=== PATIENT | female | born 1955 | race Caucasian/White ===

== ENCOUNTER → 2017-07-08 07:35 | Outpatient (CLI) | payer OTHER, SELFPAY ==
--- NOTE | 2017-07-08 07:41 | HPBI_ITS ---
MAMMOGRAPHY - BILATERAL SCREENING REASON FOR EXAM: Female, 62 years old. Routine annual screening examination. PERTINENT HISTORY: Sister with breast cancer. Remote right excisional breast biopsy. TECHNIQUE: Digital bilateral breast hiro (3D mammographic acquisition) in the CC and MLO projections. 2-D mediolateral oblique (MLO) and craniocaudad (CC) views of both breasts were obtained. CAD: Full Field Digital Mammography with Computer Added Detection was performed. COMPARISON: Comparison is made with prior study dated June 18, 2016 and May 20, 2014. FINDINGS: Breast Composition: The breasts are heterogeneously dense, which may obscure small masses. There are no dominant masses or suspicious calcifications. Stable bilateral benign-appearing axillary lymph nodes. No other significant abnormalities are identified. There has been no significant change since the prior study. HPBI/SCREENING MAMM (CAD), BILAT IMPRESSION: Stable bilateral screening mammogram. Yearly follow-up mammogram recommended. (A) ASSESSMENT CATEGORY: BIRADS Category 2: Benign. A letter regarding these results will be sent to the patient by the facility within 30 days. Approximately 10% of breast cancers are not detected by mammography. A normal mammogram should not delay biopsy of a clinically suspicious abnormality. [id number] Electronically Signed: Rodolfo Lam MD at 9:15 EST Tel [phone], Service support ,
== END ==
PROVIDERS: Family Provider Family Medicine; PCP Family Medicine; Visit Provider Obstetrics & Gynecology
DX: Z12.31 Encounter for screening mammogram for malignant neoplasm of breast (principal); Z80.3 Family history of malignant neoplasm of breast
CPT/HCPCS: 77063; 77067

== ENCOUNTER 2021-11-05 12:46 | Emergency (ER) | payer MEDICARE, OTHER, SELFPAY ==
[2021-11-05 12:47] VITALS: BP 157/89; PULSE 70; RESP 15; TEMP 36.9; O2SAT 98; BMI 23.9
--- NOTE | 2021-11-05 13:06 | EDS_ITS ---
HPI History of Present Illness Chief Complaint: Upper Extremity Injury Detail of Chief Complaint: Staple in left hand Informant: patient Onset/Context/Timing Onset: Today Narrative Narrative: Patient presents with a staple in the palm of her left hand. She was using a staple gun when the device misfired and she is a staple in the palm of her hand along the fourth metacarpal. She initially went to urgent care and was sent to the emergency room. She is unsure of her last tetanus update. She is right- hand dominant. Tetanus Immunization: Unknown PFSH PFS Home Medications cephalexin 500 mg capsule 500 mg PO Q6 #40 caps 11/05/21 [Rx Last Taken Unknown] Allergy/AdvReac Type Severity Reaction Status Date / Time No Known Allergies Allergy Verified 11/05/21 12:47 Social History Smoking Status: Former smoker ROS ROS ED Constitutional Constitutional ED: Denies chills or fever(s) Eyes Eyes: Denies change in vision or discharge from eye(s) ENT ENT ED: Denies discharge from eye(s), rhinorrhea or sore throat Cardiovascular Cardiovascular: Denies chest pain or palpitations Respiratory/Chest Respiratory/Chest: Denies cough or dyspnea Gastrointestinal Gastrointestinal: Denies abdominal pain, diarrhea, nausea or vomiting Genitourinary Genitourinary ED: Denies difficulty urinating or dysuria Musculoskeletal Musculoskeletal: Reports extremity pain; Denies back pain Integumentary Denies Abrasions or rash Neurologic Neurologic: Denies headache(s) or paresthesias Psychiatric Psychiatric: Reports anxiety Allergic/Immunologic Allergic/Immunologic ED: Denies lip swelling or urticaria EXAM Physical Exam Const Vital Signs: 11/05/21 12:47 Temperature 98.4 F Temperature Source Temporal Pulse Rate 70 Respiratory Rate 15 Blood Pressure 157/89 H Blood Pressure Mean 111 Pulse Ox 98 Oxygen Delivery Method Room Air Positive well nourished and well developed General Appearance ED: well developed HEENT Reports normocephalic and head/scalp atraumatic Eyes PERRL and EOMs intact bilaterally Neck supple Chest Wall inspection of chest normal and palpation of chest normal Resp normal respiratory effort and clear to auscultation bilaterally Cardio regular rate and regular rhythm GI Palpation: soft Extremity Extremity Narrative: Metal staple in the palm of the left hand over the fourth metacarpal. Good cap refill and sensation distally. Neuro oriented x3 and no sensory deficits noted Sensorium / Orientation: alert Psych Mood & Affect: anxious MDM MDM MDM Narrative Medical decision making narrative: 7 cc 1% lidocaine are not fused around the staple site on the palm of the hand. Right hand x-ray obtained. Treatment and Re-Evaluation Narrative: Left hand x-ray per my interpretation reveals stable in the soft tissue only. No bony involvement. After hand was anesthetized with lidocaine staple was easily removed. Wound is thoroughly cleansed. She is able to wiggle fingers. Dressing is applied and patient will be treated with Keflex. Discharge Plan Triage Chief Complaint: Upper Extremity Injury ED Provider: Xiomara Johnson Dx/Rx/DC Orders Clinical Impression: Puncture wound, Foreign body (FB) in soft tissue Instructions: First Aid: Punctures, ED Puncture Wound (General) Prescriptions: New cephalexin 500 mg capsule 500 mg PO Q6 Qty: 40 0RF Primary Care Provider: Ollie Hawley Referrals: Ollie Hawley MD [Primary Care Provider] - 1 Week Disposition Disposition: Home, Self Care
[2021-11-05] MEDS: Diphth,Pertuss(Acell),Tet Vac 0.5 ML Vial IM (13:08)
--- NOTE | 2021-11-05 13:12 | RAD_ITS ---
STUDY: X-RAY - LEFT HAND REASON FOR EXAM: Female, 66 years old. Pain and swelling after trauma TECHNIQUE: 3 view(s) of the hand. COMPARISON: None. FINDINGS: Normal radiocarpal articulation. Normal distal radioulnar joint. Normal visualized carpal bones. Normal carpal articulations Normal carpometacarpal articulation of the thumb. Normal second through fifth carpometacarpal joints. Normal metacarpi. Normal metacarpophalangeal joint of the thumb. Normal interphalangeal joint of the thumb. Normal proximal and distal phalanges of the thumb. Normal metacarpophalangeal joints of the second through fifth fingers. PIP and DIP joint arthrosis. Normal phalanges of the second through fifth fingers. Large staple in the volar aspect of the hand along the proximal third metacarpal RAD/Hand Min 3 Views IMPRESSION: Metallic staple noted in the volar soft tissues volar to the proximal third metacarpal No demonstrated fracture Distal joint arthrosis Electronically Signed: Arsh Brown MD at 13:38 EDT ,
[2021-11-05] MEDS: Lidocaine 1% (20 ml mdv) 20 ML Vial INFILT (13:49)
[2021-11-05] MEDS: Cephalexin 250 MG Capsule 500 MG PO (13:49)
== END 2021-11-05 13:56 | disposition home or self-care (01) ==
PROVIDERS: Emergency Provider Emergency Medicine; PCP Family Medicine; Visit Provider Emergency Medicine
DX: S61.441A Puncture wound with foreign body of right hand, initial encounter (principal); W26.8XXA Contact with other sharp object(s), not elsewhere classified, initial encounter; Z18.10 Retained metal fragments, unspecified; Z23 Encounter for immunization; Z87.891 Personal history of nicotine dependence
CPT/HCPCS: 73130; 90471; 90715; 99283

== ENCOUNTER 2024-06-16 12:31 | Emergency (ER) | payer MEDICARE, OTHER, SELFPAY ==
[2024-06-16 12:31] VITALS: BP 173/88; PULSE 67; RESP 16; TEMP 36.6; O2SAT 98; BMI 23.9
[2024-06-16 14:31] VITALS: PULSE 56; RESP 20; O2SAT 96
--- NOTE | 2024-06-16 14:31 | CT_ITS ---
EXAM: BRAIN/HEAD WITHOUT CONTRAST CLINICAL HISTORY: Started new blood pressure medicine and feeling shaky/weird. COMPARISON: None. TECHNIQUE: Noncontrast images of the head with multiplanar reconstructions. Dose reduction techniques were used including intermediate exposure control (AEC),iterative reconstruction technique, and/or mA and/or KV dose adjustments based on patient's size. FINDINGS: No acute intracranial hemorrhage, mass, mass effect, midline shift or pathologic extra-axial fluid collection. No hydrocephalus. Preservation of the bailey- white parenchymal differentiation. The orbits are symmetrically unremarkable. Visualized paranasal sinuses and mastoid air cells are clear. The calvarium is grossly intact. Nasal septum is deviated to the left. CT/Brain/Head without Contrast IMPRESSION: No CT evidence of acute intracranial pathology. Reading Location: [id number]
--- NOTE | 2024-06-16 14:32 | EKG12_ITS ---
Test Reason : CP Blood Pressure : */* mmHG Vent. Rate : 61 BPM Atrial Rate : 61 BPM P-R Int : 184 ms QRS Dur : 132 ms QT Int : 456 ms P-R-T Axes : 86 89 62 degrees QTcB Int : 459 ms Normal sinus rhythm Right bundle branch block Abnormal ECG Confirmed by Isaias Conklin ([id number]), editor trade journal JOEY WHIPPLE ([id number]) on 06/17/2024 11:22:34 AM Referred By: Confirmed By: Isaias Conklin
--- NOTE | 2024-06-16 14:33 | EDS_ITS ---
HPI History of Present Illness Chief Complaint: General Illness Narrative Narrative: 69-year-old female presents with what she thinks is medication side effect. She has past medical history of hypertension for which she has been taking hydrochlorothiazide for years. Additionally, she states she has gastric motility problems and has to take a laxative to have a bowel movement. She takes them once or twice a week. She has been supplementing with potassium recommended by her primary care provider because she has been craving salt. She states that she was started on losartan 25 mg daily for blood pressure by her primary care provider's ANNI. She took it last night, and felt fine. She took it again this morning because she wanted to start her own establish a routine and taking her other medications as well. While she took her losartan at 8 AM, around noon she had called her primary care provider's office because she has started to feel shaky, she felt heart palpitations and as if she had taken speed. She feels improved currently. However, she states she still has a headache. She denies any other exacerbating or alleviating factors to her symptoms. [facility] Medical History High blood cholesterol Hypertension Home Medications ?Medication ?Instructions ?Recorded ?Last Taken ?Type atorvastatin 10 mg tablet 10 mg PO DAILY 06/16/24 Unkn own History hydrochlorothiazide 25 mg tablet 25 mg PO DAILY Unknown History losartan 25 mg tablet 25 mg PO DAILY 06/16/24 Unkn own History potassium chloride 10 mEq 10 meq PO DAILY 06/16/24 Unk nown History tablet,extended release Allergy/AdvReac Type Severity Reaction Status Date / Time No Known Allergies Allergy Verified 06/16/24 12:34 Surgical History History of tonsillectomy and adenoidectomy Social History Smoking Status: Current every day smoker tobacco type: e-cigarettes ROS ROS ED ROS Narrative Constitutional: No fever, no chills. Feeling shaky. HEENT: No sore throat. No neck pain. No loss of vision. No rhinorrhea. Cardiovascular: No chest pain. Positive palpitations and high heart rate. No pedal edema. Respiratory: No cough, no shortness of breath. Abdominal: No abdominal pain. No nausea. No vomiting. Genitourinary: No dysuria. No hematuria. Musculoskeletal: No myalgias. No arthralgias. Neurologic: Positive headaches. No dizziness. No lightheadedness. Skin: No rash. No change in color. Psychiatric: No depression. No anxiety. EXAM Physical Exam Narrative Exam Narrative: Afebrile. Vital signs noted. Nontoxic-appearing. Cardiovascular examination reveals a regular rate and rhythm with intermittent bradycardia. Lungs are clear to auscultation bilaterally. Abdomen soft nontender with normal active bowel sounds. No guarding or rebound. Neurological examination is nonfocal and nonlateralizing. Moves all extremities. Const Vital Signs: 06/16/24 12:31 06/16/24 14:15 06/16/24 14:31 Temperature 97.8 F Temperature Source Oral Pulse Rate 67 56 L Respiratory Rate 16 20 H Respiratory Effort Normal Blood Pressure 173/88 H Blood Pressure Mean 116 Pulse Ox 98 96 Oxygen Delivery Method Room Air Room Air MDM MDM MDM Narrative Medical decision making narrative: Patient currently has elevated blood pressure, but a normal heart rate. EKG was obtained and interpreted by myself independently as normal sinus rhythm at 61 bpm without ectopy or acute ST changes. No STEMI. Differential diagnosis for headache includes but not limited to hypertensive urgency/emergency versus intracranial hemorrhage. Comprehensive workup was pursued. I will also look for signs of dehydration or potassium depletion given that she is on hydrochlorothiazide and takes a laxative as well. I do not feel she requires IV fluids currently. As she was complaining of shortness of breath, chest x-ray will be obtained to rule out pneumonia and/or pneumothorax. I have low suspicion for pulmonary embolism as her pulse ox is 98% on room air, she is not tachycardic. I reviewed her laboratory work and she has normal white count of 5.9, hemoglobin 13.5, hematocrit 40.5, platelet count 255. Her electrolyte panel is grossly unremarkable and she has a normal potassium of 3.5, LFTs are grossly unremarkable. BUN normal at 12 with creatinine 0.85. No evidence of dehydration. I reviewed the radiology report of the CT of the brain and there is no intracranial hemorrhage. My independent interpretation of her chest x-ray shows no pneumonia or pneumothorax, no widened mediastinum. At this point in time, upon repeat examination, she is resting on the cot comfortably. I feel she can be discharged to follow-up. She was told to call her primary care provider to see if they want her to change her medication as they had added an additional antihypertensive. Return instructions to the emergency department were reviewed. Patient motivated for discharge. Disposition is discharged home in stable condition. History & Record Review Discussion w/independent historian: Patient Lab Data Attestation: I reviewed the patient's lab results. Labs: Laboratory Results - last 24 hr 06/16/24 15:15 WBC 5.9 RBC 4.26 Hgb 13.5 Hct 40.5 MCV 95.1 MCH 31.7 MCHC 33.3 RDW Std Deviation 43.9 RDW Coeff of Dionte 12.8 Plt Count 255 MPV 11.7 Immature Gran % (Auto) 0.200 Neut % (Auto) 62.9 Lymph % (Auto) 28.4 [place] % (Auto) 6.6 Eos % (Auto) 1.4 Baso % (Auto) 0.5 Absolute Neuts (auto) 3.7 Absolute Lymphs (auto) 1.68 Nucleated RBC % 0 Sodium 140 Potassium 3.5 Chloride 107 Carbon Dioxide 28.0 Anion Gap 5 BUN 12 Creatinine 0.85 Estim Creat Clear Calc 61.24 Est GFR (MDRD) Af Amer 85 Est GFR (MDRD) Non-Af 70 BUN/Creatinine Ratio 14.2 Glucose 92 Calcium 9.5 Total Bilirubin 0.50 AST 20 ALT 23 Alkaline Phosphatase 85 Total Protein 7.0 Albumin 3.8 Globulin 3.2 Albumin/Globulin Ratio 1.2 Radiography Chest X-Ray - ED: 1 View, Read by ED Physician and Read by Radiologist Diagnostic Testing: Clinical Impression(s) from Imaging Studies Brain CT 06/16/24 14:31 IMPRESSION: No CT evidence of acute intracranial pathology. Reading Location: [id number] Chest X-Ray 06/16/24 14:45 IMPRESSION: No acute cardiopulmonary process. Reading Location[facility] Discharge Plan Triage Chief Complaint: General Illness ED Provider: Momo Staton Dx/Rx/DC Orders Clinical Impression: Shakiness, Palpitations, Medication side effects Instructions: ED Screening Exam Medical Nonurgent, ED Palpitations Prescriptions: No Action atorvastatin 10 mg tablet 10 mg PO DAILY potassium chloride 10 mEq tablet extended release 10 meq PO DAILY losartan 25 mg tablet 25 mg PO DAILY hydrochlorothiazide 25 mg tablet 25 mg PO DAILY Primary Care Provider: Ollie Hawley Referrals: Ollie Hawley MD [Primary Care Provider] - 1-2 Days if not improving Activity Restrictions/Additional Instructions: Continue your antihypertensive medication. Follow-up with your primary care provider. Return to the emergency department with new or worsening symptoms. Your laboratory work and EKG and chest x-ray along with CT were grossly unremarkable today. Print Language: Icelandic Disposition Disposition: Home, Self Care
--- NOTE | 2024-06-16 14:45 | RAD_ITS ---
EXAM: XR Chest, 1 View CLINICAL INDICATION: TECHNIQUE: Frontal view of the chest. COMPARISON: No relevant prior studies available. FINDINGS: LUNGS AND PLEURAL SPACES: Unremarkable. No consolidation. No pneumothorax. HEART: Unremarkable. No cardiomegaly. MEDIASTINUM: Unremarkable. Normal mediastinal contour. BONES/JOINTS: Unremarkable. No acute fracture. RAD/Chest 1 View (Portable) IMPRESSION: No acute cardiopulmonary process. Reading Location[facility]
[2024-06-16 15:28] LABS: Absolute Lymphocyte Count 1.68 X10^3/uL (0.83-4.51); Absolute Neutrophil Count 3.7 X10^3/uL (2.0-7.7); Basophil# 0.03 X10^3/uL; Basophil% 0.5 % (0-1); Eosinophil# 0.08 X10^3/uL; Eosinophils% 1.4 % (0-5); Hematocrit 40.5 % (37-47); Hemoglobin 13.5 g/dL (12.0-15.0); Lymphocyte # 1.68 X10^3/ul (0.83-4.51); Lymphocyte % 28.4 % (19-41); Mean Corp Hgb Conc 33.3 g/dL (32-36); Mean Corpuscular Hgb 31.7 pg (27.0-32.0); Mean Corpuscular Volume 95.1 fL (81-99); Mean Platelet Vol. 11.7 fl (6.2-12.0); Monocyte# 0.39 X10^3/uL; Monocyte% 6.6 % (0-10); NRBC Flagged by Analyzer 0 % (0-5); Neutrophil # 3.72 X10^3/uL (2.7-7.7); Neutrophil % 62.9 % (47-70); Platelet Count 255 K/mm3 (150-450); RBC Distribution Width CV 12.8 % (11.6-14.6); RBC Distribution Width SD 43.9 fl (35.1-43.9); Red Blood Count 4.26 M/mm3 (4.2-5.4); White Blood Count 5.9 K/mm3 (4.4-11.0)
[2024-06-16 15:56] LABS: ALB/GLOB Ratio 1.2 RATIO (0.9-2.4); AST(SGOT) 20 U/L (15-37); Alanine Aminotransfer ALT/SGPT 23 U/L (13-56); Albumin, Serum 3.8 g/dL (3.2-5.0); Alkaline Phosphatase 85 U/L (45-117); Anion Gap 5 (5-15); BUN 12 mg/dL (7-18); BUN/Creat Ratio 14.2 RATIO (10-20); Calcium,Total 9.5 mg/dL (8.5-10.1); Chloride 107 mmol/L (98-107); Creatinine, Serum 0.85 mg/dL (0.55-1.02); EST Glomerular Filtration Rate 70 mL/min (>60); Est Glom Filt Rate - Afr Amer 85 mL/min (>60); Estimated Creatinine Clearance 61.24 ml/min; Globulin 3.2 g/dL (2.2-4.2); Glucose 92 mg/dL (74-106); Potassium 3.5 mmol/L (3.5-5.1); Sodium Level 140 mmol/L (136-145)
[2024-06-16 16:00] VITALS: BP 155/81; PULSE 58; RESP 16; TEMP 36.6; O2SAT 99
[2024-06-16 16:02] LABS: Bacteria 0 SEEN /hpf (None Seen); Mucous, Urine 0 SEEN /hpf (<or=2+); White Blood Cells 0 SEEN /hpf (0-5)
[2024-06-16 16:23] LABS: Color, Urine Yellow (Yellow); Glucose, Dipstick Normal (Normal); Ketone-Dipstick Negative (Negative); Leukocyte Esterase-Dipstick 25 /ul (Negative); Nitrite-Dipstick Negative (Negative); Occult Blood-Urine Negative /ul (Negative); Protein-Dipstick Negative (Negative); Urine Bilirubin Dipstick Negative (Negative); Urine Clarity Clear (Clear); Urine Urobilinogen Normal (Normal); Urine pH 6.5 (5.0 - 8.0)
[2024-06-16 16:46] LABS: Red Blood Cells-Urine 0 SEEN /hpf (0-5); Squamous Epithelial Cells - UA 0-5 SEEN /hpf (5-10)
== END 2024-06-16 16:18 | disposition home or self-care (01) ==
PROVIDERS: Emergency Provider Emergency Medicine; PCP Family Medicine; Visit Provider Emergency Medicine
DX: R00.2 Palpitations (principal); R25.8 Other abnormal involuntary movements; T50.2X5A Adverse effect of carbonic-anhydrase inhibitors, benzothiadiazides and other diuretics, initial encounter; R06.02 Shortness of breath; E78.00 Pure hypercholesterolemia, unspecified; I10 Essential (primary) hypertension; F17.290 Nicotine dependence, other tobacco product, uncomplicated; Z79.899 Other long term (current) drug therapy
CPT/HCPCS: 70450; 71045; 80053; 81001; 85025; 93005; 99284; A4216

== ENCOUNTER 2024-07-16 18:55 | Emergency (ER) | payer MEDICARE, OTHER, SELFPAY ==
[2024-07-16 18:56] VITALS: BP 109/82; PULSE 69; RESP 15; TEMP 36.4; O2SAT 100; BMI 23.1
--- NOTE | 2024-07-16 18:58 | EKG12_ITS ---
Test Reason : CP Blood Pressure : */* mmHG Vent. Rate : 66 BPM Atrial Rate : 66 BPM P-R Int : 196 ms QRS Dur : 152 ms QT Int : 466 ms P-R-T Axes : 74 68 17 degrees QTcB Int : 488 ms Normal sinus rhythm Right bundle branch block Abnormal ECG Confirmed by NATALI MCKNIGHT, LINDA ([id number]), telegraph editor JOEY WHIPPLE ([id number]) on 07/20/2024 10:47:59 AM Referred By: Wilfrido Olivera Confirmed By: LINDA HURST MD
--- NOTE | 2024-07-16 19:31 | ED.VIS.CHEST ---
HPI History of Present Illness Chief Complaint: Chest Pain [facility] Medical History High blood cholesterol Hypertension Home Medications ?Medication ?Instructions ?Recorded ?Last Taken ?Type atorvastatin 10 mg tablet 10 mg PO DAILY 06/16/24 Unknown History hydrochlorothiazide 25 mg tablet 25 mg PO DAILY 06/16/24 Unknown History losartan 25 mg tablet 25 mg PO DAILY 06/16/24 Unknown History potassium chloride 10 mEq 10 meq PO DAILY 06/16/24 Unknown History tablet,extended release Allergy/AdvReac Type Severity Reaction Status Date / Time No Known Allergies Allergy Verified 07/16/24 18:58 Family History no significant family his Surgical History History of tonsillectomy and adenoidectomy Social History Smoking Status: Current every day smoker tobacco type: e-cigarettes EXAM Physical Exam Const Vital Signs: 07/16/24 18:56 07/16/24 19:19 07/16/24 19:42 Temperature 97.6 F L Temperature Source Temporal Pulse Rate 69 Respiratory Rate 15 Respiratory Effort Short of Breath Blood Pressure 109/82 H Blood Pressure Mean 91 Pulse Ox 100 Oxygen Delivery Method Room Air Room Air 07/16/24 19:55 07/16/24 21:00 07/16/24 22:00 Temperature Temperature Source Pulse Rate 61 58 L 62 Respiratory Rate 12 18 19 H Respiratory Effort Blood Pressure 114/67 126/75 H Blood Pressure Mean 82 92 Pulse Ox 97 98 98 Oxygen Delivery Method Room Air Room Air Room Air 07/16/24 22:07 Temperature 97.5 F L Temperature Source Pulse Rate 62 Respiratory Rate 19 H Respiratory Effort Blood Pressure 126/75 H Blood Pressure Mean 92 Pulse Ox 98 Oxygen Delivery Method MDM MDM MDM Narrative Medical decision making narrative: HISTORY OF PRESENT ILLNESS: 69-year-old female history of hypertension, hyperlipidemia presents with chest pain. Notes she has had this for couple days. She notes shortness of breath as well. States she was seen for similar about 1 month ago. She notes recently she has been having lots of side effects from blood pressure medication including chest pain and feeling off. She notes that she has intermittent chest pain and shortness of breath. No chest pain or short of breath as she sits here. Notes earlier today she had symptoms. They are not exertional. Not pleuritic. She denies leg swelling. Denies any bleeding diathesis. Denies any recent cough fever chills. The patient denies recent surgery in the last 4 weeks or immobilization in the last 3 days, denies previous diagnosis of DVT or PE, hemoptysis, unilateral leg swelling or malignancy with treatment the last 6 months or palliative. No estrogen use noted. Patient denies sudden onset of pain, no tearing sensation, no migratory symptoms, no new numbness, weakness or loss of sensation. Patient denies family history or personal history of Connective tissue disorders (Marfan's Syndrome, Elin Danlos etc) REVIEW OF SYSTEMS: Pertinent positives: Chest pain, shortness of breath Pertinent negatives: As per HPI PHYSICAL EXAM: Nursing triage notes reviewed, Vital signs reviewed Constitutional: please see mdm HENT: MMM Eyes: Pupils equal round and reactive to light, Extraocular muscles intact Neck: No stridor, no JVD, full neck ROM Lungs: Clear to auscultation, No wheezing or rales. No increased work of breathing, no conversational dyspnea, no accessory muscle use, no nasal flaring. No respiratory distress noted Heart: Regular rate and rhythm, No murmurs, No rubs and No gallops, 2+ distal pulses (radial, femoral, posterior tibial) in all extremities Abdomen: Soft, there is no tenderness, rigidity, rebound or guarding, no obvious peritoneal signs, no palpable pulsatile abdominal masses, no auscultated abdominal bruit : No CVAT Extremities: No edema Neuro: No new focal neurological deficits, cranial nerves II through XII intact, 5/5 strength in all present extremities. Intact sensation to light touch in all present extremities, 2+ reflexes bilateral patella tendons. Skin: No rash or lesions noted MEDICAL DECISION MAKING: Chief Complaint: Chest pain, shortness of breath External records reviewed: Reviewed prior cardiovascular testing Factors affecting care: n as per HPI. Social determinants of health: none History obtained from others: none Consults: none [facility] Narrative: The patient was initially hemodynamically stable, afebrile and nontoxic-appearing. Exam without focal cardiopulmonary abnormalities. I considered the following differential diagnosis: ACS, arrhythmia, anemia, electrolyte disturbance, pneumonia, pneumothorax, pericarditis, PE, aortic dissection. I obtained a broad lab and imaging workup to further elucidate the etiology of the patient's complaints. ALL IMAGES (IF OBTAINED) HAVE BEEN PERSONALLY REVIEWED AND INTERPRETED BY MYSELF. EKG is obtained per protocol. EKG shows a sinus rhythm, 66 bpm, prolonged QT interval at 488, right bundle branch block normal axis, no obvious STEMI. Similar morphology compared to EKG from 06/16/2024 high-sensitivity troponin is negative, no evidence of myocardial ischemia x 2 (rules out per protocol) CBC without leukocytosis, severe anemia, no thrombocytopenia. BMP with mild hypokalemia, no REGAN I have personally reviewed the patient's chest x-ray. Chest x-ray is unremarkable for pulmonary edema, pneumothorax, pneumonia or focal cardiopulmonary abnormality. The synthesis of the patient's history, physical exam, labs images suggest no acute life-limiting etiology. Hypokalemia noted was replaced with oral potassium. Discussed close outpatient follow-up for further blood pressure medication titration The patient and/or family, caregivers express understanding. The patient and/or family, caregivers agrees with the plan. Shared decision making: I will have a discussion with the patient and or visitors regarding risk/benefits of further testing or admission. They will be made aware of of the risk/benefits inherent in this decision they will be given the opportunity to voice understanding. Total critical care time today provided was at least 0 minutes. This excludes separately billable procedures. Critical care time (if documented) is secondary to the patient having high probability of clinically significant/life threatening deterioration in the patient's condition which required my urgent intervention. Impression: 1. Chest pain 2. Hypokalemia Dispo: Discharge home This note was generated with [employer] dictation software. It may contain incorrect words, spelling, and punctuation that were not noted in review of the chart prior to signing. Lab Data Labs: Laboratory Results - last 24 hr 07/16/24 07/16/24 19:30 21:30 WBC 4.8 RBC 4.39 Hgb 14.1 Hct 40.5 MCV 92.3 MCH 32.1 H MCHC 34.8 RDW Std Deviation 42.5 RDW Coeff of Dionte 12.6 Plt Count 256 MPV 11.4 Immature Gran % (Auto) 0.200 Neut % (Auto) 53.7 Lymph % (Auto) 35.8 [place] % (Auto) 7.2 Eos % (Auto) 2.3 Baso % (Auto) 0.8 Absolute Neuts (auto) 2.6 Absolute Lymphs (auto) 1.73 Nucleated RBC % 0 Sodium 140 Potassium 2.9 L Chloride 103 Carbon Dioxide 20.7 L Anion Gap 16 H BUN 10 Creatinine 0.75 Estim Creat Clear Calc 65.06 Est GFR (MDRD) Non-Af 85 BUN/Creatinine Ratio 13.0 Glucose 115 H Calcium 9.4 Troponin T High Sens 8 Troponin T Hi Sens 2 Hr 7 Radiography Diagnostic Testing: Clinical Impression(s) from Imaging Studies Chest X-Ray 07/16/24 19:55 IMPRESSION: New bibasilar infiltrates, [id number]. Follow-up until resolution is recommended. Reading Location: [facility] Discharge Plan Triage Chief Complaint: Chest Pain ED Provider: Wilfrido Olivera Dx/Rx/DC Orders Prescriptions: No Action atorvastatin 10 mg tablet 10 mg PO DAILY potassium chloride 10 mEq tablet extended release 10 meq PO DAILY losartan 25 mg tablet 25 mg PO DAILY hydrochlorothiazide 25 mg tablet 25 mg PO DAILY Primary Care Provider: Ollie Hawley Referrals: Ollie Hawley MD [Primary Care Provider] - Print Language: Romanian
[2024-07-16 19:43] LABS: Absolute Lymphocyte Count 1.73 X10^3/uL (0.83-4.51); Absolute Neutrophil Count 2.6 X10^3/uL (2.0-7.7); Basophil# 0.04 X10^3/uL; Basophil% 0.8 % (0-1); Eosinophil# 0.11 X10^3/uL; Eosinophils% 2.3 % (0-5); Hematocrit 40.5 % (37-47); Hemoglobin 14.1 g/dL (12.0-15.0); Lymphocyte # 1.73 X10^3/ul (0.83-4.51); Lymphocyte % 35.8 % (19-41); Mean Corp Hgb Conc 34.8 g/dL (32-36); Mean Corpuscular Hgb 32.1 pg (27.0-32.0); Mean Corpuscular Volume 92.3 fL (81-99); Mean Platelet Vol. 11.4 fl (6.2-12.0); Monocyte# 0.35 X10^3/uL; Monocyte% 7.2 % (0-10); NRBC Flagged by Analyzer 0 % (0-5); Neutrophil # 2.59 X10^3/uL (2.7-7.7); Neutrophil % 53.7 % (47-70); Platelet Count 256 K/mm3 (150-450); RBC Distribution Width CV 12.6 % (11.6-14.6); RBC Distribution Width SD 42.5 fl (35.1-43.9); Red Blood Count 4.39 M/mm3 (4.2-5.4); White Blood Count 4.8 K/mm3 (4.4-11.0)
[2024-07-16 19:55] VITALS: BP 114/67; PULSE 61; RESP 12; O2SAT 97
--- NOTE | 2024-07-16 19:55 | RAD_ITS ---
PROCEDURE: CHEST 1 VIEW (PORTABLE) 07/16/2024 REASON FOR EXAM: CHEST PAIN TECHNIQUE: Frontal view of the chest. COMPARISON: Chest x-ray dated 06/16/2024. FINDINGS: The cardiac silhouette is within normal limits. Bibasilar infiltrates identified, [id number], new since prior examination. Follow-up until resolution is recommended. Calcifications seen within the left hilum, similar to prior examination. RAD/Chest 1 View (Portable) IMPRESSION: New bibasilar infiltrates, [id number]. Follow-up until resolution is recommended. Reading Location: [id number]
[2024-07-16 20:21] LABS: Anion Gap 16 (5-15); BUN 10 mg/dL (4-19); Calcium,Total 9.4 mg/dL (7.6-11.0); Carbon Dioxide 20.7 mmol/L (21.0-32.0); Chloride 103 mmol/L (98-108); Creatinine, Serum 0.75 mg/dL (0.70-1.20); EST Glomerular Filtration Rate 85 (>60); Estimated Creatinine Clearance 65.06 ml/min (50-250); Glucose 115 mg/dL (70-99); Potassium 2.9 mmol/L (3.3-5.1); Sodium Level 140 mmol/L (133-145); Troponin T High Sensitivity 8 ng/L (<=14)
[2024-07-16 21:00] VITALS: BP 126/75; PULSE 58; RESP 18; O2SAT 98
[2024-07-16] MEDS: Potassium Chloride Oral Tablet 20 MEQ 40 MEQ PO (21:06)
[2024-07-16 21:59] LABS: Troponin T High Sens 2 HR 7 ng/L (<=14)
[2024-07-16 22:00] VITALS: PULSE 62; RESP 19; O2SAT 98
[2024-07-16 22:07] VITALS: BP 126/75; PULSE 62; RESP 19; TEMP 36.4; O2SAT 98
== END 2024-07-16 22:22 | disposition home or self-care (01) ==
PROVIDERS: Emergency Provider Emergency Medicine; PCP Family Medicine; Referring Provider Emergency Medicine; Visit Provider Emergency Medicine
DX: R07.9 Chest pain, unspecified (principal); E87.6 Hypokalemia; I10 Essential (primary) hypertension; E78.00 Pure hypercholesterolemia, unspecified; F17.290 Nicotine dependence, other tobacco product, uncomplicated; Z79.899 Other long term (current) drug therapy
CPT/HCPCS: 71045; 80048; 84484; 85025; 93005; 99284; A4216